=== PATIENT | female | born 1970 | race African-American/Black ===

== ENCOUNTER → 2016-08-28 | Outpatient (CLI) | payer BC ==
--- NOTE | ~2016-08-28 | MR103 ---
[facility] A Service [facility] RADIOLOGY TEXT RESULTS PATIENT: KATIA RODRIGUEZ LOCATION: [facility] : 66 UNIT #: [id number] AGE: [address]: Jayy Crocker MD SEX: F ORDER DR: [id number] [address] [address] [id number] MR#: [id number] Acc #: [id number] NAME: KATIA RODRIGUEZ : 1970 SEX: F STUDY DATE/TIME: 08/28/2016 15:55 UNIT: [facility] ROOM: STUDY DESCRIPTION: MR Knee Wo Contrast Lt Attending Physician: Jayy Crocker M.D. Referring Physician: Jayy Crocker M.D. Ordering Physician: Physician Non-Staff Primary Care Physician: Dorcas Gutierrez Aprn [facility]ENTER REPORT This report is preliminary unless electronic signature is present. EXAM MRI left knee, 08/28/2016 COMPARISON Bilateral knee radiographs 05/18/2016 HISTORY Order states osteoarthritis left knee. History sheet states no known injury. No knee surgery. Osteoarthritis. Left knee pain for 10 years. Status post several injections which have helped. Most recent injection in April 2016 did not help. Increasing pain for 4 months with some instability. FINDINGS There is a minimal effusion without a popliteal cyst. There is slight lateral patellar subluxation and tilt. 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 There is also moderate to high-grade chondromalacia of the femoral trochlear groove. The quadriceps and patellar tendons are intact. Cruciate ligaments are normal. The lateral meniscus, lateral collateral ligament complex, and popliteus tendon are intact. Articular cartilage of the lateral compartment is normal. There is moderate medial compartment arthrosis with joint space narrowing, weightbearing moderate to high-grade chondromalacia, subarticular edema and cystic change of the periphery of the medial tibial plateau, and osteophyte formation. There is a slightly complex longitudinal tear of the medial meniscus with longitudinal free margin and undersurface tear [facility] A Service [facility] RADIOLOGY TEXT RESULTS PATIENT: KATIA RODRIGUEZ LOCATION: [facility] : 66 UNIT #: [id number] AGE: [address]: Jayy Crocker MD SEX: F ORDER DR: and meniscal extrusion. There is caudal displacement of the extruded meniscus versus a meniscal flap extending towards the tibial gutter. The MCL is intact. There is no marrow lesion or fracture. No loose bodies or fractures are noted. Prominent red marrow pattern is present. This is most commonly seen in the setting of normal variation such as due to obesity, smoking, etc. Correlate for any pathologic causes such as anemia or other hematologic disorders. IMPRESSION 1. The predominant abnormality is a moderate medial compartment arthrosis with a longitudinal slightly complex tear of the posterior half of the medial meniscus which is extruded and extends into the medial tibial gutter (versus a meniscal flap). 2. Patellofemoral arthrosis detailed above. 3. Cruciate ligaments and lateral compartment are within normal limits. 4. Minimal effusion. No fracture or loose body. 5. Prominent red marrow pattern. See above. Dictated by... Phoebe Kim M.D. THIS IS AN ELECTRONICALLY VERIFIED REPORT Phoebe Kim M.D. at 08/29/2016 11:29 AM Lana TD: 08/29/2016 10:01 JOB #: [id number] MRI CENTER REPORT Page 1 of 1
== END | disposition home or self-care (01) ==
LOC: SMRI 15:05
DX: M17.12 Unilateral primary osteoarthritis, left knee (principal); M25.362 Other instability, left knee; M23.222 Derangement of posterior horn of medial meniscus due to old tear or injury, left knee
CPT/HCPCS: 73721